=== PATIENT | female | born 1965 | race American Indian/Alaskan Native ===

== ENCOUNTER 2017-03-22 05:59 | Day surgery (SDC) | payer MEDICARE ==
[2017-03-21 11:26] VITALS: BMI 34.2
[2017-03-22 06:30] VITALS: RESP 20
[2017-03-22] MEDS ORDERED: Lactated Ringer's 1,000 ML IV ONE (06:49)
[2017-03-22] MEDS ORDERED: Rocuronium 10 mg/ml (5 ml) ONE (07:18)
[2017-03-22] MEDS ORDERED: Lidocaine 4% (Laryng-O-Jet) Kit MM ONE (07:18)
[2017-03-22] MEDS ORDERED: Phenylephrine 10 mg/ml Inj ONE (07:18)
[2017-03-22] MEDS ORDERED: Succinylcholine 200 mg/10 ml Inj IV ONE (07:18)
[2017-03-22] MEDS ORDERED: Propofol 10 mg/ml Inj (20 ML) ONE ×2 (07:18→08:03)
[2017-03-22] MEDS ORDERED: Lidocaine 2% MPF (5 ml) Inj ONE (07:23)
[2017-03-22] MEDS ORDERED: Bupivacaine 0.5% Inj(30mL) ONE (07:26)
[2017-03-22] MEDS ORDERED: Iohexol 240 200 ML ONE (07:27)
[2017-03-22] MEDS ORDERED: ceFAZolin IV 1 gm in Dextrose 2 GM/100 ML BAG IVPB ONE (07:27)
[2017-03-22] MEDS ORDERED: Lidocaine 1% Inj (20ml) ONE (07:28)
[2017-03-22] MEDS ORDERED: Bacitracin Ointment 30 GM TUBE ONE ×2 (07:29→08:21)
--- NOTE | 2017-03-22 07:38 | CP.SDSHP ---
Same Day Surgery H & P - History Proposed Procedure: Right knee aspiration/arthrogram s/p TKR Pre-Op Diagnosis: Right knee pain s/p TKR - Previous Medical/Surgical History Cardiac: Hypertension Pulmonary: Asthma, Emphysema/COPD Endocrine/Metabolic: Thyroid Disease, Diabetes Previous Surgical History: Right TKR 2013, cholecystectomy, c section breast reduction - Allergies Allergies: Allergies No Known Allergies Allergy (Verified 03/21/17 11:26) - Physical Exam Vital Signs: Vital Signs 03/22/17 03/22/17 06:29 06:32 Temperature 98 F Pulse Rate 107 H 107 H Respiratory 20 Rate Blood Pressure 116/67 O2 Sat by Pulse 98 Oximetry Mental Status: Alert & Oriented x3 Heart: WNL Lungs: WNL GI: WNL - {Optional Preform as Required} Ortho: Other (Right knee: incision well healed, no erythema, sensation intact, + ROM ankle/toes, sensation intact, +DP/PT pulses calves soft NT neg homans) Other Pertinent Findings: labs on chart, reviewed - Impression Impression: 51F 3 years s/p right TKR with pain for aspiration/cx/arthrogram Pt. Evaluated Today:Candidate for Anesthesia & Procedure: Yes - Date & Time Date: 03/22/17 Time: 07:38 Short Stay Discharge - Short Stay Discharge Admitting Diagnosis/Reason for Visit: M17.11 Disposition: HOME/ ROUTINE Referrals: Eloy Florentino III, MD [Primary Care Provider] - Past Patient History - Past Medical History & Family History Past Medical History?: Yes - Past Social History Smoking Status: Heavy Smoker > 10 Cigarettes Daily - CARDIAC Hx Cardiac Disorders: Yes Hx Hypertension: Yes - PULMONARY Hx Respiratory Disorders: Yes Hx Asthma: Yes Hx Bronchitis: Yes Hx Chronic Obstructive Pulmonary Disease (COPD): Yes - NEUROLOGICAL Hx Neurological Disorder: No - HEENT Hx HEENT Problems: No - RENAL Hx Chronic Kidney Disease: No - ENDOCRINE/METABOLIC Hx Endocrine Disorders: Yes Hx Diabetes Mellitus Type 2: Yes Hx Hypothyroidism: Yes - HEMATOLOGICAL/ONCOLOGICAL Hx Blood Disorders: No Hx Blood Transfusions: No - INTEGUMENTARY Hx Dermatological Problems: No - MUSCULOSKELETAL/RHEUMATOLOGICAL Hx Musculoskeletal Disorders: Yes Hx Arthritis: Yes - GASTROINTESTINAL Hx Gastrointestinal Disorders: No - GENITOURINARY/GYNECOLOGICAL Hx Genitourinary Disorders: No - PSYCHIATRIC Hx Psychophysiologic Disorder: No - SURGICAL HISTORY Hx Surgeries: Yes Hx Appendectomy: Yes Hx Cholecystectomy: Yes Hx Joint Replacement: Yes (RIGHT KNEE) Other/Comment: BREASTS REDUCTION - ANESTHESIA Hx Anesthesia: Yes Hx Anesthesia Reactions: No Hx Malignant Hyperthermia: No Has any member of the family had a problem w/ anesthesia?: No
[2017-03-22] MEDS ORDERED: Midazolam 2 MG/2 ML VIAL ONE (07:45)
[2017-03-22] MEDS ORDERED: ePHEDrine 50 mg/ml Inj ONE (08:10)
[2017-03-22] MEDS ORDERED: Iohexol 240 200 ML IJ ONE (08:28)
[2017-03-22 08:49] LABS: FLUID TYPE SYNOVIAL FLUID
[2017-03-22] MEDS ORDERED: Lactated Ringer's 1,000 ML IV SCH (09:00)
--- NOTE | 2017-03-22 09:03 | PCM.SURG1 ---
Surgeon's Initial Post Op Note - Surgeon's Notes Surgeon: Mishel [facility] Program Coordinator: BETTINA Grossman Type of Anesthesia: IV Sedation Anesthesia Administered By: Dr Gray Ho Pre-Operative Diagnosis: Painful L TKR Operative Findings: + flexion instability. no evidence for component lossening/ component malposition Post-Operative Diagnosis: Flexion instability R Knee. no evidence for component malposition. no evidence for loosening Operation Performed: Aspiration arthrogram R knee. manipulation R knee under fluor/anesthesia. positioning of fluor/interpreation of video images Specimen/Specimens Removed: synovial fluid Estimated Blood Loss: EBL {In ML}: 0 Blood Products Given: N/A Drains Used: No Drains Post-Op Condition: Good Date of Surgery/Procedure: 03/22/17 Time of Surgery/Procedure: 08:30 (time in room [email or web address] indcution time 8:30)
[2017-03-22] MEDS ORDERED: Oxycodone/Acetaminophen 5/325 mg Tab PO PRN (09:15)
[2017-03-22 09:16] LABS: FLUID TYPE SYNOVIAL FLUID
[2017-03-22 10:38] LABS: SYNOVIAL FLUID TOTAL COUNT 100 (0-0)
[2017-03-22 10:42] LABS: SYNOVIAL FLUID TOTAL COUNT 100 (0-0)
[2017-03-22 10:52] VITALS: BP 90/60; PULSE 110; TEMP 97.8; O2SAT 98
--- NOTE | 2017-03-22 12:11 | RAD ---
PROCEDURE: Right Knee Radiographs. HISTORY: s/p right knee manipulation COMPARISON: None. FINDINGS: BONES: Status post right knee arthroplasty. No osseous fracture. No evidence of prosthesis loosening. JOINTS: As above JOINT EFFUSION: None. OTHER FINDINGS: None. IMPRESSION: Right knee arthroplasty.
[2017-03-23] MEDS ORDERED: GlipiZIDE 10 mg SR Tab PO SCH (09:00)
[2017-03-23] MEDS ORDERED: Insulin Detemir 100 Units/ml Inj SC SCH (09:00)
--- NOTE | 2017-03-31 19:05 | OP ---
PROCEDURE DATE: 03/22/2017 PREOPERATIVE DIAGNOSIS: Painful left total knee replacement. OPERATIVE FINDINGS: Flexion instability. No evidence for component loosening, component malposition or sepsis. POSTOPERATIVE DIAGNOSIS: Flexion instability of the right knee with no evidence of component malposition or loosening. OPERATION PERFORMED: Aspiration arthrogram, right knee; manipulation of right knee under fluoroscopy and anesthesia; positioning of fluoroscope and interpretation of video images. SURGEON: Eloy Florentino MD. SALES ACCOUNT SPECIALIST: Tatiana Ceja, certified registered nursing first aid teacher. TYPE FO ANESTHESIA: Intravenous sedation. ANESTHESIA ADMINISTERED BY: Gray Cabezas MD. SPECIMEN REMOVED: Synovial fluid sent to the lab for aerobic, anaerobic, AFB, and fungal cultures as well as stat Gram stain, number of white cells per high-power field. ESTIMATED BLOOD LOSS: Less than 5 mL. BLOOD PRODUCTS GIVEN: None. DRAINS: None. POSTOPERATIVE CONDITION: Good. Anesthesia induction time 0830, time of incision 0830, time in the room 0745. OPERATIVE INDICATIONS: Mony Caal is a 51-year-old woman well-known to my practice who presents status post successful total knee replacement, now has some pain and instability while walking. X-rays in the office revealed excellent component position. The possibility of fluid instability was discussed. Concept of aspiration arthrogram was discussed. After having obtained informed consent in the above fashion; after thoroughly discussing the pros, cons, risks, and benefits of surgical approach; the possibility of mechanical failure, infection, thromboembolic disease, secondary or tertiary surgery was discussed; the concept of later revision or polyethylene exchange was discussed, the patient can no longer withstand the discomfort and wished the surgery to be accomplished. DESCRIPTION OF PROCEDURE: After having obtained informed consent; after having identified side, site, and procedure and a critical pause/time-out; after satisfactory induction of the anesthetic, the patient identified as Mony Caal in the supine position with all bony prominences well padded. The right lower extremity was prepped, free draped in usual fashion for lower extremity surgery. The tourniquet was not employed. Under the surgeon's direction, the fluoroscope was positioned, video images were generated, therapeutic decisions were made therefrom. Under the surgeon's direction, AP and lateral image intensification views were obtained. There was no evidence of gross loosening of components. Approximately 30 mL of Hypaque radiopaque contrast was introduced. Flexion, extension was accomplished. Under the surgeon's direction, the fluoroscope was positioned. There was found to be no evidence of loosening on manipulation of any of the components. On manipulation of the knee at 90 degrees, there was found to be evidence of flexion instability with no evidence of flexion/extension mismatch, just loosened this. The fluid was aspirated and sent to the lab for aerobic, anaerobic, AFB, and fungal cultures as well as stat Gram stain, number of white cells per high-power field. A compression dressing was applied. Eloy Florentino MD
== END 2017-03-22 11:41 | disposition home or self-care (01) ==
LOC: H.OPSURG 05:59
PROVIDERS: ATTEND Orthopaedic Surgery
DX: M17.11 Unilateral primary osteoarthritis, right knee (principal); J44.9 Chronic obstructive pulmonary disease, unspecified; E11.9 Type 2 diabetes mellitus without complications; I10 Essential (primary) hypertension; F17.210 Nicotine dependence, cigarettes, uncomplicated; E03.9 Hypothyroidism, unspecified
CPT/HCPCS: 20610; 27570; 73560; 82948; 87015; 87070; 87075; 87101; 87116; 87181; 87206; 89051; 97161; G8978; G8979; G8980; J0690; J1885; J2250; J2370; J2405; J2704; J3010; J7030; J7120; Q9966